=== PATIENT | female | born 1945 | race Caucasian/White ===

== ENCOUNTER 2024-09-14 14:58 | Outpatient (AMB) | payer MEDICAID, SELFPAY ==
--- NOTE | 2024-09-14 15:07 | A.OFFPC_ITS ---
Vital Signs 09/14/24 15:08 Height 4 ft 11.84 in Weight 140 lb 2 oz BMI 27.5 BP 132/80 Blood Pressure Location Lt brachial Position Sitting Pulse 70 Pulse Source Pulse Oximeter Pulse Oximetry (%) 95 Oxygen Delivery Method Room Air Intake Visit Reasons: New Patient Intake Note: The patient is a new patient establishing care for hypertension, prediabetes, and hypothyroidism. She arrived in the [facility] from [facility], six months ago. 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 Patient is not known to [facility]. Patient presents today with her granddaughter who is the brakes inspector for the duration of this visit formal brakes inspector was offered and declined. She recently moved from [place] to the [facility] earlier this year and is here to establish care. She has never had a colonoscopy and is declining a colonoscopy at this time. She has not had a mammogram in over 10 years and is also declining the screening. She has no acute concerns today. [facility] Medical History (Updated 09/14/24 @ 15:45 by Julia Garber PA-C) Impaired glucose tolerance Surgical History (Updated 09/14/24 @ 15:37 by Julia Garber PA-C) H/O: hysterectomy Social History Patient Tobacco Use Status: Never used Tobacco Questionnaire PHQ-9 Over the last 2 weeks, how often have you been bothered by any of the following problems? 1. Little interest or pleasure in doing things: not at all 2. Feeling down, depressed, or hopeless: not at all 3. Trouble falling or staying asleep, or sleeping too much: not at all 4. Feeling tired or having little energy: not at all 5. Poor appetite or overeating: not at all 6. Feeling bad about yourself - or that you are a failure or have let yourself or your family down: not at all 7. Trouble concentrating on things, such as reading the newspaper or watching television: not at all 8. Moving or speaking so slowly that other people could have noticed. Or the opposite - being so fidgety or restless that you have been moving around a lot more than usual: not at all 9. Thoughts that you would be better off or of hurting yourself in some way: not at all Total score: 0 Depression Screening Interpretation: Negative Depression Screening Done: Yes 73368 - PHQ-9 Billing: Yes Source: Developed by Drs. Darinel Jacobs, Stephanie Garrido, Lele Mathis and colleagues, with an educational rayna from [employer]. Thrive Questionnaire Date Thrive assessed: 09/14/24 I am a: Patient What is your living situation today?: I have a steady place to live Within the past 12 months, did the food you bought not last and you didn't have the money to get more?: Never true Within the past 12 months, did you worry whether your food would run out before you got money to buy more?: Never true Do you have trouble paying for medicines?: No Do you have trouble getting transportation to medical appointments?: No Do you have trouble paying your heating and electricity bill?: No Do you have trouble taking care of your child, family member or friend?: No Do you have trouble with day-to-day activities such as bathing, preparing meals, shopping, managing finances, etc.?: No Are you currently unemployed and looking for a job?: No Are you interested in more education?: No Please select the resources that you would like help with: None Currently or been in a relationship where the following occur: No concerns reported THRIVE Score: 0 AUDIT C Alcohol Use Questionnaire (AUDIT-C) 1. How often do you have a drink containing alcohol?: Never 3. How often do you have six or more drinks on one occasion?: Never Total Score: 0 MARIA GUADALUPE-7 AMB Questionnaire MARIA GUADALUPE-7 Date MARIA GUADALUPE - 7 assessed: 09/14/24 Feeling nervous, anxious, or on edge: 0 = Not at all Not being able to stop or control worryin = Not at all Worrying too much about different things: 0 = Not at all Trouble relaxin = Not at all Being so restless that it is hard to sit still: 0 = Not at all Becoming easily annoyed or irritable: 0 = Not at all Feeling afraid as if something awful might happen: 0 = Not at all Total MARIA GUADALUPE-7 score (0-4 normal; 5-9 mild; 10-14 moderate; 15-21 severe): 0 Source: Developed by Drs. Darinel Jacobs, Stephanie Garrido, Lele Mathis and colleagues, with an educational rayna from [employer]. MARIA GUADALUPE-7 Assessment Billing MARIA GUADALUPE-7 Assessment Tool: MARIA GUADALUPE-7 Assessment 39999 Review of Systems Const Denies body aches, Denies fatigue, Denies fever(s), Denies frequent falls, Denies headache(s) and Denies weakness Eyes Reports no additional complaints and Denies change in vision ENT Denies dysphagia, Denies dizziness, Denies facial pain, Denies headache(s), Denies nasal congestion and Denies odynophagia Card Denies chest pain, Denies syncope, Denies irregular heart rhythm, Denies leg edema, Denies lightheadedness and Denies dyspnea Resp Denies cough and Denies dyspnea GI Denies abdominal pain, Denies constipation, Denies dysphagia, Denies dyspepsia, Denies diarrhea, Denies nausea, Denies odynophagia and Denies vomiting Denies urinary frequency and Denies dysuria Musc Denies back pain and Denies myalgias Skin/Breast Reports system reviewed and no additional complaints, except as documented Neuro Denies dizziness, Denies syncope, Denies frequent falls, Denies headache(s) and Denies weakness Psych Reports no additional complaints Endo Denies fatigue Physical exam (Primary Care) Vital Signs: Last Vital Signs Pulse 70 09/14/24 15:08 BP 132/80 09/14/24 15:08 Pulse Ox 95 09/14/24 15:08 Oxygen Delivery Method Room Air 09/14/24 15:08 BMI result Body Mass Index 27.5 Tobacco/Smoking Status: Tobacco use Status Patient Tobacco Use Status Never used Tobacco 09/14/24 15:38 PHQ-9: PHQ-9 Score PHQ-9: Total score 0 09/14/24 15:20 Depression Screening Interpretation: Negative Thrive Assessment: Date of Thrive Assessment Date Thrive assessed 09/14/24 09/14/24 15:20 Currently or been in a relationship where the following occur: No concerns reported Const General: cooperative, healthy appearing, comfortable and no acute distress Orientation/consciousness: patient oriented x3 HENMT Head: Yes normocephalic Ears: hearing grossly normal bilaterally General nose exam: Normal external nose present Eyes General: appearance normal, both eyes and all related structures Conjunctivae: conjunctivae normal Neck Neck: Yes full ROM and Yes no lymphadenopathy Resp Effort & Inspection: normal respiratory effort Auscultation: clear to auscultation bilaterally, no crackles, no rales, no rhonchi and no wheezes Cardio Rate: regular rate Rhythm: regular rhythm Skin General skin exam: no rashes or lesions noted Neuro General: patient oriented x3 Gait exam (Neuro): Normal gait present Extrem General: Yes normal to inspection, Yes full ROM and No edema Psych Affect: normal affect Attitude: cooperative Insight: Good insight present (Psych) Judgement: Good judgement present (Psych) Results AMB Hemoglobin A1c AMB Hemoglobin A1c 7.0 % Last Edit by ROGER Farrell on 09/14/24 16:04 Coding Level of Care Code New Pt Level 4 (62552) Diagnoses Hypothyroidism E03.9 Hypertension I10 Type II diabetes mellitus E11.9 Hypercholesterolemia E78.00 Additional Codes MARIA GUADALUPE-7 Assessment Billing - MARIA GUADALUPE-7 Assessment Tool: MARIA GUADALUPE-7 Assessment 61852 ([id number]) PHQ-9 - 75674 - PHQ-9 Billing: Yes ([id number]) Assessment & Plan Assessment & Plan (1) Hypothyroidism: Code(s): E03.9 - Hypothyroidism, unspecified Category: Medical Plan: Patient currently on levothyroxine 100 mcg daily ordered for updated thyroid blood work. (2) Hypertension: Code(s): I10 - Essential (primary) hypertension Category: Medical Plan: Continue on current blood pressure medication. Avoid salt intake and encourage healthy diet and regular exercise. (3) Type II diabetes mellitus: Code(s): E11.9 - Type 2 diabetes mellitus without complications Category: Medical Plan: Decrease the amount of carbohydrates such as pasta, bread, rice, and potatoes and limit the amount of sweets. Although fruits are generally healthy they should be eaten in moderation as they are still high in sugar. Hemoglobin A1c goal of less than 7%. A1c 7% in the office today. Patient would like to work on dietary and lifestyle modification and we will repeat A1c in 3 months. Carissa ent understands if A1c remains elevated we will need increase in metformin and/or additional medication. (4) Hypercholesterolemia: Code(s): E78.00 - Pure hypercholesterolemia, unspecified Category: Medical Plan: Avoid foods that are high in cholesterol such as red meat, fried foods, eggs and baked goods. Triglyceride goal of less than 150 and LDL goal of less than 100. Continue on atorvastatin 40 mg. Ordered for updated blood work. Plan This note was constructed using voice recognition software. While every effort has been made to ensure accuracy and mathematics professor, still areas may have been included sometimes these areas may affect the content or meeting of the given symptoms. Total time spent caring for the patient today was 30 minutes. This includes time spent before the visit reviewing the chart, time spent during the visit, and time spent after the visit and documentation. Orders: Orders Comprehensive Met. Panel Today R73.02 - Impaired glucose tolerance (oral), Z00.00 - Encounter for general adult medical examination without abnormal findings Lipid Panel Today E78.00 - Pure hypercholesterolemia, unspecified, R73.02 - Impaired glucose tolerance (oral) Vitamin D 25-OH Total Today R73.02 - Impaired glucose tolerance (oral), Z00.00 - Encounter for general adult medical examination without abnormal findings XR DEXA axial skeleton Today Z78.0 - Asymptomatic menopausal state AMB Hemoglobin A1c Today Z13.1 - Encounter for screening for diabetes mellitus Complete Blood Count Auto Diff Today R73.02 - Impaired glucose tolerance (o ral), Z00.00 - Encounter for general adult medical examination without abnormal findings TSH reflex Free T4 Today E03.9 - Hypothyroidism, unspecified, Z00.00 - Encounter for general adult medical examination without abnormal findings Vitamin B12 and Folate Today R73.02 - Impaired glucose tolerance (oral), Z00.00 - Encounter for general adult medical examination without abnormal findings Free T4 (Free Thyroxine) Today E03.9 - Hypothyroidism, unspecified, Z00.00 - Encounter for general adult medical examination without abnormal findings Medications: New hydrochlorothiazide 25 mg PO DAILY 90 tabs 3RF conjugated estrogens off 5 days; repeat cycle 0.625 mg vaginal DAILY 30 grams 0RF levothyroxine 100 mcg PO DAILY 90 tabs 2RF losartan 50 mg PO BID 180 tabs 3RF metformin 850 mg PO BID 180 tabs 2RF metoprolol succinate ER 50 mg PO DAILY 90 tabs 3RF atorvastatin 40 mg PO DAILY 90 tabs 3RF
[2024-09-14 15:08] VITALS: BP 132/80; PULSE 70; O2SAT 95; BMI 27.5
== END 2024-09-14 15:50 | disposition home or self-care (01) ==
DX: E03.9 Hypothyroidism, unspecified (principal); I10 Essential (primary) hypertension; E11.9 Type 2 diabetes mellitus without complications; E78.00 Pure hypercholesterolemia, unspecified; Z13.1 Encounter for screening for diabetes mellitus

== ENCOUNTER → 2024-10-21 13:10 | Outpatient (REF) | payer MEDICAID, SELFPAY ==
--- NOTE | ~2024-10-21 | MM_ITS ---
EXAMINATION: DXA BONE DENSITY AXIAL HISTORY: Estrogen deficiency TECHNIQUE: Virtual View App Dual energy absorptiometry (DEXA) of the lumbar spine, total left hip, and femoral neck was performed. COMPARISON: There are no prior studies for comparison. FINDINGS: The bone mineral density of the lumbar spine is 0.868 with a T-score of -2.5, and a Z-score of -0.6. The bone mineral density of the left total hip is 0.971 with a T-score of -0.3, and a Z-score of 1.6. The bone mineral density of the left femoral neck is 0.952 with a T-score of -0.6, and a Z-score of 1.4. MM/XR DEXA axial skeleton IMPRESSION: Based on bone mineral density, and according to World Health Organization (WHO) criteria, the diagnosis is consistent with osteoporosis. All bone density values are in grams per centimeter squared (g/cm2). Statistically, 68% of repeat scans fall within 1 SD (+/- 0.010 g/cm2 for AP spine L1-L4) and 1 SD (+/- 0.012 g/cm2 for femur total) FRAX is a trademark of the [employer]'s [employer] Metabolic Bone Disease, a World Health Organization (WHO) Collaborating Center. Electronically signed by: Darinel Thurman MD 10/22/2024 08:47 AM [facility]
--- OUTSIDE RECORDS SUMMARY | 2024-10-21 14:33 | XMS_ITS | Clinical Summary ---
Author Organization [facility] Address [address] [place] [address] Care Team Providers Care Export Coordinator Name Role Phone Unavailable Primary Care Provider Unavailabl e Social History Tobacco Use Types Packs/Day Years Used Date Smoking Tobacco: Never Assessed Sex and Gender Information Value Date Recorded Sex Assigned at Not on file Gender Identity Not on file Sexual Orientation Not on file Plan of Treatment Health Maintenance Due Date Last Done Comments DTaP,Tdap,and Td Vaccines (1 - Tdap) 1966 Zoster Vaccines (1 of 2) 1997 Pneumococcal Vaccine: 65+ Ye ars (1 of 1 - PCV) 2012 RSV Immunization Patients 60 + Years Old (1 - 1-dose 75+ series) 2022 COVID-19 Vaccine ( - 2023-2 5 season) 2024 Influenza Vaccine (#1) 2024 HIB Vaccines Aged Out No longer eligi ble based on patient's age to complete this topic HPV Vaccines Aged Out No longer eligi ble based on patient's age to complete this topic Hepatitis A Vaccines Aged Out No long er eligible based on patient's age to complete this topic Hepatitis B Vaccines Aged Out No long er eligible based on patient's age to complete this topic IPV Vaccines Aged Out No longer eligi ble based on patient's age to complete this topic MMR Vaccines Aged Out No longer eligi ble based on patient's age to complete this topic Meningococcal ACWY Vaccine Aged Out N o longer eligible based on patient's age to complete this topic RSV Immunization Patients Un gold 20 months Aged Out No longer eligible b ased on patient's age to complete this topic Varicella Vaccines Aged Out No longer eligible based on patient's age to complete this topic
== END | disposition home or self-care (01) ==
LOC: HO.MAMMO 13:10
DX: Z13.820 Encounter for screening for osteoporosis (principal); Z78.0 Asymptomatic menopausal state
CPT/HCPCS: 77080

== ENCOUNTER → 2024-10-21 13:30 | Outpatient (BNV) | payer MEDICAID, SELFPAY | PROVIDERS: Visit Provider Radiology Diagnostic Radiology | DX: E28.39 Other primary ovarian failure (principal) | CPT/HCPCS: 77080 ==

== ENCOUNTER 2024-11-11 08:00 | Outpatient (AMB) | payer MEDICAID, SELFPAY ==
--- NOTE | 2024-11-11 08:05 | MHC.OFFVIS ---
Vital Signs 11/11/24 08:06 Height 4 ft 11.84 in Weight 143 lb 8.335 oz BMI 28.2 BP 180/88 H Blood Pressure Location Lt brachial Position Sitting Pulse 69 Pulse Source Pulse Oximeter Pulse Oximetry (%) 94 Oxygen Delivery Method Room Air Intake Visit Reasons: Age-related osteoporosis without current path Intake Note: Patient present today for age-related osteoporosis. Director Quality Systems Required: Yes Director Quality Systems Language: Hand Straightener Services: Director Quality Systems Offered & Declined Accompanied by: Grand Child Allergies Sulfa (Sulfonamide Antibiotics) Allergy (Severe, Verified 11/11/24 08:10) swollen tongue Medication List - Last Reconciled 11/11/24 by Darinel Garcia MD atorvastatin 40 mg PO DAILY conjugated estrogens 0.625 mg vaginal DAILY hydrochlorothiazide 25 mg PO DAILY levothyroxine 100 mcg PO DAILY losartan 50 mg PO BID metformin 850 mg PO BID metoprolol succinate ER 50 mg PO DAILY HPI Comments Details: 79 YO Female is seen in consultation at the request of PCP for Osteoporosis. First diagnosed in 1mo .Not seen specialist before Not Received treatment in the past No history of pathologic fracture or ONJ. Has several servings of dietary calcium per day in the form of milk, oranges, cheese . Takes Calcium supplement 300 mg daily in divided doses. Takes 1000 IU of Vitamin D daily. Denies ever using PPI, anticoagulant, antiepileptic or glucocorticoid medication. Not Does weight bearing exercise Fracture history: None Height loss: No ANESTHESIA DIRECTOR history: Menarche at age 14 - menopause at age 60 - nl menses Denies history of Kidney stones: Denies family history of Osteoporosis or hip fracture. UTD on dental cleanings and sees dentist every 6 months. No planned upcoming dental work or extractions. No tabacco oor ETOH use DXA dated 10/21/24: FINDINGS: The bone mineral density of the lumbar spine is 0.868 with a T-score of -2.5, and a Z-score of -0.6. The bone mineral density of the left total hip is 0.971 with a T-score of -0.3, and a Z-score of 1.6. The bone mineral density of the left femoral neck is 0.952 with a T-score of -0.6, and a Z-score of 1.4. MM/XR DEXA axial skeleton IMPRESSION: Based on bone mineral density, and according to World Health Organization (WHO) criteria, the diagnosis is consistent with osteoporosis. Labs: [facility] Medical History (Updated 10/22/24 @ 08:57 by Julia Garber PA-C) Impaired glucose tolerance Surgical History H/O: hysterectomy Social History Patient Tobacco Use Status: Never used Tobacco Physical Exam Vital Signs: Last Vital Signs Pulse 69 11/11/24 08:06 BP 180/88 H 11/11/24 08:06 Pulse Ox 94 11/11/24 08:06 Oxygen Delivery Method Room Air 11/11/24 08:06 BMI result Body Mass Index 28.2 There are no Cushingoid features. Absence of blue sclera. Absence of kyphosis. Thyroid gland is of nl size and weighs 15 gms. There are no thyroid nodules palpated. Lungs CTA. Heart S1 S2 Reg R/R Abdominal exam benign. Muscle strength 5/5 . Examination of spine reveals absence of tenderness on palpation Assessment & Plan Assessment & Plan (1) Osteoporosis: Comment: bone density 09/2024 Code(s): M81.0 - Age-related osteoporosis without current pathological fracture Category: Medical Plan: this is a 79-year-old female with a history of osteoporosis. Rule out secondary causes. Plan is to check a calcium, albumin, TSH, free T4, 25 hydroxy vitamin-D, SPEP, urine immunofixation, 24 hour urine for calcium and creatinine. We will ensure 1200 mg of calcium 2000 IU of vitamin D. assuming secondary workup was negative, could consider either observation or treatment with an anti resorptive Orders: Orders Calcium Today M81.0 - Age-related osteoporosis without current pathological fracture Albumin Level Today M81.0 - Age-related osteoporosis without current pathological fracture Thyroid Stimulating Hormone Today M81.0 - Age-related osteoporosis without current pathological fracture Vitamin D 25-OH Total Today M81.0 - Age-related osteoporosis without current pathological fracture Protein Electrophoresis, Serum Today M81.0 - Age-related osteoporosis without current pathological fracture Creatinine, 24 Hr Group Today M81.0 - Age-related osteoporosis without current pathological fracture Immunofixation, Random Urine Today M81.0 - Age-related osteoporosis without current pathological fracture Phosphorus Today M81.0 - Age-related osteoporosis without current pathological fracture Free T4 (Free Thyroxine) Today M81.0 - Age-related osteoporosis without current pathological fracture Calcium, 24 Hr Ur Today M81.0 - Age-related osteoporosis without current pathological fracture Coding Level of Care Code New Pt Level 4 (11747) Diagnoses Osteoporosis M81.0
[2024-11-11 08:06] VITALS: BP 180/88; PULSE 69; O2SAT 94; BMI 28.2
--- OUTSIDE RECORDS SUMMARY | 2024-11-11 08:09 | XMS_ITS | Clinical Summary ---
Author Organization [facility] ity Address [address] [place] [address] Care Team Providers Care Fence Builder Name Role Phone Unavailable Primary Care Provider Unavailabl e Social History Tobacco Use Types Packs/Day Years Used Date Smoking Tobacco: Never Assessed Comments Unknown Sex and Gender Information Value Date Recorded Sex Assigned at Not on file Legal Sex Female 9:32 AM EST Gender Identity Not on file Sexual Orientation Not on file Plan of Treatment Health Maintenance Due Date Last Done Comments DTaP,Tdap,and Td Vaccines (1 - Tdap) 1966 Pneumococcal Vaccine: 50+ Ye ars (1 of 1 - PCV) 1997 Zoster Vaccines (1 of 2) 1997 RSV Immunization Patients 60 + Years Old (1 - 1-dose 75+ series) 2022 COVID-19 Vaccine (1 - 2023-2 5 season) 2024 Influenza Vaccine [...] patient's age to complete this topic Meningococcal B Vacine Aged Out No lo nger eligible based on patient's age to complete this topic RSV Immunization Patients Un gold 20 months Aged Out No longer eligible b ased on patient's age to complete this topic Varicella Vaccines Aged Out No longer eligible based on patient's age to complete this topic
== END 2024-11-11 08:38 | disposition home or self-care (01) ==
PROVIDERS: Visit Provider Internal Medicine Endocrinology, Diabetes & Metabolism
DX: M81.0 Age-related osteoporosis without current pathological fracture (principal)
CPT/HCPCS: 99204

== ENCOUNTER → 2024-11-11 08:00 | Outpatient (BNVA) | payer MEDICAID, SELFPAY | PROVIDERS: Visit Provider Internal Medicine Endocrinology, Diabetes & Metabolism | DX: M81.0 Age-related osteoporosis without current pathological fracture (principal) | CPT/HCPCS: 99202 ==

== ENCOUNTER 2024-12-01 07:37 | Outpatient (REF) | payer MEDICAID, SELFPAY ==
[2024-12-01 08:14] LABS: MANUAL DIFF FLAG NO
[2024-12-01 08:51] LABS: Basophils Absolute Auto 0.1 X10*3/uL (0.0-0.2); Basophils Percent Auto 0.7 % (0-2); Eosinophils Percent Auto 10.8 % (0-4); Hematocrit 39.7 % (37.0-47.0); Hemoglobin 13.2 g/dl (12.0-16.0); Imm Gran Abs Auto 0.03 X10*3/uL (0.00-0.03); Imm Gran Pct Auto 0.3 % (0.0-0.4); Lymphocytes Absolute Auto 2.2 X10*3/uL (1.2-4.9); Lymphocytes Percent Auto 22.5 % (20-40); Mean Corpuscular HGB Conc 33.2 g/dl (31.0-35.0); Mean Corpuscular Hemoglobin 30.1 pg (27.0-33.0); Mean Corpuscular Volume 90.4 fL (80.0-98.0); Mean Platelet Volume 9.7 fL (9.4-12.3); Monocytes Absolute Auto 0.7 X10*3/uL (0.1-1.2); Monocytes Percent Auto 7.8 % (2-11); Neutrophils Absolute Auto 5.5 x10*3/uL (2.0-8.3); Neutrophils Percent Auto 57.9 % (45-73); Platelet Count 332 X10*3/uL (160-400); Red Blood Count 4.39 X10*6/uL (4.20-5.50); Red Cell Distribution Width 12.7 % (11.0-16.0); White Blood Count 9.5 X10*3/uL (4.8-10.8)
[2024-12-01 09:19] LABS: Alanine Aminotransferase 31 U/L (0-31); Albumin Level 4.2 g/dL (3.5-5.0); Alkaline Phosphatase 102 U/L (39-117); Anion Gap 15 (12-20); Aspartate Amino Transferase 35 U/L (5-31); Bilirubin Total 0.5 mg/dL (0.0-1.0); Blood Urea Nitrogen 28 mg/dL (9-16); Calcium 9.9 mg/dL (8.4-10.2); Carbon Dioxide 25 mmol/L (22-29); Chloride 102 mmol/L (96-108); Cholesterol 136 mg/dL (<200); Estimated Glomerular Filt Rate > 60; Glucose Random 133 mg/dL (60-115); HDL Cholesterol 49 mg/dL (>40); LDL Cholesterol Calculated 60 mg/dL (<100); Phosphorus 4.3 mg/dL (2.7-4.5); Potassium 3.6 mmol/L (3.3-5.1); Sodium 138 mmol/L (135-145); Total Protein 8.4 g/dL (6.5-8.0); Triglycerides 135 mg/dL (<150)
[2024-12-01 09:38] LABS: Free T4 (Free Thyroxine) 1.25 ng/dL (0.71-1.85); Thyroid Stimulating Hormone 0.24 uIU/mL (0.32-4.0); Vitamin D 25-OH Total 41.5 ng/mL (>30)
[2024-12-01 09:54] LABS: Folate 16.5 ng/mL (> or = 4.0); Vitamin B12 493 pg/mL (200-900)
[2024-12-02 22:48] LABS: Prot Elec - Albumin 4.4 g/dL (3.8-4.8); Prot Elec - Alpha1 0.2 g/dL (0.2-0.3); Prot Elec - Alpha2 0.7 g/dL (0.5-0.9); Prot Elec - Beta 1 0.5 g/dL (0.4-0.6); Prot Elec - Beta 2 0.5 g/dL (0.2-0.5); Prot Elec - Gamma 1.6 g/dL (0.8-1.7); Prot Elec - Total Protein 7.9 g/dL (6.1-8.1)
== END 2024-12-01 07:38 | disposition home or self-care (01) ==
LOC: HO.LAB 07:37
PROVIDERS: Absent Provider Internal Medicine Endocrinology, Diabetes & Metabolism
DX: Z00.00 Encounter for general adult medical examination without abnormal findings (principal); M81.0 Age-related osteoporosis without current pathological fracture; E78.00 Pure hypercholesterolemia, unspecified; R73.02 Impaired glucose tolerance (oral)
CPT/HCPCS: 36415; 80053; 80061; 82306; 82607; 82746; 84100; 84165; 84439; 84443; 85025; 86335

== ENCOUNTER 2024-12-07 08:27 | Outpatient (AMB) | payer MEDICAID, SELFPAY ==
--- NOTE | 2024-12-07 08:32 | MHC.PC.OV ---
Vital Signs 12/07/24 08:34 Height 4 ft 11.84 in Weight 141 lb 6 oz BMI 27.8 BP 130/66 Blood Pressure Location Lt brachial Position Sitting Pulse 75 Pulse Source Pulse Oximeter Temp 97.1 F Temp Source Temporal Artery Scan Pulse Oximetry (%) 97 Oxygen Delivery Method Room Air Intake Visit Reasons: ANNUAL Intake Note: Patient is here today for a physical. 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 prefer granddaughter to translate) Manager Portable: Present Accompanied by: Grand Child Allergies Sulfa (Sulfonamide Antibiotics) Allergy (Severe, Verified 12/07/24 08:33) swollen tongue Medication List - Last Reconciled 12/07/24 by Julia Garber PA-C atorvastatin 40 mg PO DAILY conjugated estrogens 0.625 mg vaginal DAILY hydrochlorothiazide 25 mg PO DAILY levothyroxine 100 mcg PO DAILY losartan 50 mg PO BID metformin 850 mg PO BID metoprolol succinate ER 50 mg PO DAILY Tobacco use date assessed: 12/07/24 Fall risk assessment: No Falls in past year Last assessed Fall Risk: 12/07/24 Dental Screening Dental Screen Date: 12/07/24 Did you have a dental visit in the last 12 months?: No Did you have a dental problem in the last 6 months where you did not have access to dental care?: No Was dental information given to patient?: No HPI ANNUAL HPI Details 79-year-old female with past medical history hypertension, hypothyroidism, hypercholesterolemia, type 2 diabetes and osteoporosis last seen 08/2024 coming in for annual exam. In review of the notes, patient was seen by endocrinology 11/11/2024 for osteoporosis ordered for labs plan to follow up to review and discuss treatment. Past evaluations confirmed Type 2 Diabetes Mellitus, with today's HbA1c at 7.0%, requiring an adjustment in diabetic management. She denies significant systemic symptoms like headaches, visual, auditory changes, chest pain, and shortness of breath. She reports seasonal itching of the eyes and dry hands in the winter, likely associated with environmental allergies and weather conditions. She does mentioned having bilateral eye itching. [facility] Medical History Impaired glucose tolerance Surgical History H/O: hysterectomy Social History Housing: House Alcohol intake: never Patient Tobacco Use Status: Never used Tobacco e-Cigarette/Vaping Use: Never Used Second Hand Smoke Exposure: No service: No Current occupational status: retired Cognitive needs: No Hearing needs: No Vision needs: No Questionnaire PHQ-9 Over the last 2 weeks, how often have you been bothered by any of the following problems? 1. Little interest or pleasure in doing things: not at all 2. Feeling down, depressed, or hopeless: not at all 3. Trouble falling or staying asleep, or sleeping too much: not at all 4. Feeling tired or having little energy: not at all 5. Poor appetite or overeating: not at all 6. Feeling bad about yourself - or that you are a failure or have let yourself or your family down: not at all 7. Trouble concentrating on things, such as reading the newspaper or watching television: not at all 8. Moving or speaking so slowly that other people could have noticed. Or the opposite - being so fidgety or restless that you have been moving around a lot more than usual: not at all 9. Thoughts that you would be better off or of hurting yourself in some way: not at all Total score: 0 Depression Screening Interpretation: Negative Depression Screening Done: Yes Source: Developed by Drs. Darinel Jacobs, Stephanie Garrido, Lele Mathis and colleagues, with an educational rayna from [employer]. Thrive Questionnaire Date Thrive assessed: 12/07/24 I am a: Patient What is your living situation today?: I have a steady place to live Within the past 12 months, did the food you bought not last and you didn't have the money to get more?: Never true Within the past 12 months, did you worry whether your food would run out before you got money to buy more?: Never true Do you have trouble paying for medicines?: No Do you have trouble getting transportation to medical appointments?: No Do you have trouble paying your heating and electricity bill?: No Do you have trouble taking care of your child, family member or friend?: No Do you have trouble with day-to-day activities such as bathing, preparing meals, shopping, managing finances, etc.?: No Are you currently unemployed and looking for a job?: No Are you interested in more education?: No Please select the resources that you would like help with: None Currently or been in a relationship where the following occur: No concerns reported THRIVE Score: 0 AUDIT C Alcohol Use Questionnaire (AUDIT-C) 1. How often do you have a drink containing alcohol?: Never 3. How often do you have six or more drinks on one occasion?: Never Total Score: 0 MARIA GUADALUPE-7 AMB Questionnaire MARIA GUADALUPE-7 Date MARIA GUADALUPE - 7 assessed: 12/07/24 Feeling nervous, anxious, or on edge: 0 = Not at all Not being able to stop or control worryin = Not at all Worrying too much about different things: 0 = Not at all Trouble relaxin = Not at all Being so restless that it is hard to sit still: 0 = Not at all Becoming easily annoyed or irritable: 0 = Not at all Feeling afraid as if something awful might happen: 0 = Not at all Total MARIA GUADALUPE-7 score (0-4 normal; 5-9 mild; 10-14 moderate; 15-21 severe): 0 Source: Developed by Drs. Darinel Jacobs, Stephanie Garrido, Lele Mathis and colleagues, with an educational rayna from [employer]. Review of Systems Const Denies body aches, Denies chills, Denies fever(s), Denies headache(s) and Denies poor appetite Eyes Reports no additional complaints ENT Denies dysphagia, Denies dizziness, Denies headache(s) and Denies odynophagia Card Denies chest pain, Denies syncope, Denies edema, Denies irregular heart rhythm, Denies lightheadedness and Denies dyspnea Resp Denies cough and Denies dyspnea GI Denies abdominal pain, Denies constipation, Denies dysphagia, Denies diarrhea, Denies nausea, Denies odynophagia and Denies vomiting Reports no additional complaints Musc Reports no additional complaints and Denies abnormal gait Skin/Breast Reports system reviewed and no additional complaints, except as documented Neuro Denies abnormal gait, Denies dizziness, Denies syncope and Denies headache(s) Psych Reports no additional complaints Physical exam (Primary Care) Vital Signs: Last Vital Signs Temp 97.1 F 12/07/24 08:34 Pulse 75 12/07/24 08:34 BP 130/66 12/07/24 08:34 Pulse Ox 97 12/07/24 08:34 Oxygen Delivery Method Room Air 12/07/24 08:34 BMI result Body Mass Index 27.8 Tobacco/Smoking Status: Tobacco use Status Tobacco use date assessed 12/07/24 12/07/24 08:39 Patient Tobacco Use Status Never used Tobacco 12/07/24 08:39 e-Cigarette/Vaping Use Never Used 12/07/24 08:39 PHQ-9: PHQ-9 Score PHQ-9: Total score 0 12/07/24 10:38 Depression Screening Interpretation: Negative Thrive Assessment: Date of Thrive Assessment Date Thrive assessed 12/07/24 12/07/24 08:39 Currently or been in a relationship where the following occur: No concerns reported Const General: cooperative, healthy appearing, comfortable and no acute distress Orientation/consciousness: patient oriented x3 HENMT Head: Yes normocephalic Ears: hearing grossly normal bilaterally, external ears normal, TM's normal bilaterally and EAC's normal General nose exam: Normal external nose present Face and sinus: Yes normal facial exam and Yes sinuses nontender Mouth: Normal oral and palatal mucosa present and tongue normal Throat: Yes posterior oropharynx normal Eyes General: appearance normal, both eyes and all related structures Conjunctivae: conjunctivae normal Pupils: Equal, round and reactive pupils present EOM: EOMs intact bilaterally and No Nystagmus present Neck Neck: Yes normal visual inspection, Yes full ROM and Yes no lymphadenopathy Chest Chest palpation & inspection: normal inspection of the chest Resp Effort & Inspection: normal respiratory effort Auscultation: clear to auscultation bilaterally, no crackles, no rales, no rhonchi, no wheezes and breath sounds present Cardio Rate: regular rate Rhythm: regular rhythm Peripheral pulses: radial pulses present and dorsalis pedis present GI Inspection: Yes normal to inspection and No Abdominal wall edema Palpation (GI): Soft to palpation, not firm and nontender Auscultation: normal bowel sounds Rectal Exam - Female: deferred General: Yes no CVA tenderness Back/Spine/Pelvis Back: no CVA tenderness Skin General skin exam: no rashes or lesions noted Neuro General: patient oriented x3 Cranial nerves: Yes Equal, round and reactive pupils present, Yes Midline tongue present, Yes Ability to bilaterally elevate shoulders present and No Nystagmus present Gait exam (Neuro): Normal gait present Extrem General: Yes normal to inspection, Yes full ROM, No no pedal edema and No edema Psych Speech and movement: Normal speech and movement present Affect: normal affect Insight: Good insight present (Psych) Judgement: Good judgement present (Psych) Results AMB Hemoglobin A1c AMB Hemoglobin A1c 7.0 % Last Edit by MARIANA Severino on 12/07/24 09:11 Results Reviewed Results Reviewed: Laboratory Last Values Hgb A1c (Clinic) 7.0 % (4.0-6.0) H 12/07/24 08:56 Coding Level of Care Code Est Pt Prev Care >65y(08652) Diagnoses Osteoporosis M81.0 Type II diabetes mellitus E11.9 Hypercholesterolemia E78.00 Hypothyroidism E03.9 Hypertension I10 Annual physical exam Z00.00 Overweight (BMI 25.0-29.9) E66.3 Itchy eyes H57.9 Assessment & Plan Assessment & Plan (1) Osteoporosis: Comment: bone density 09/2024 Code(s): M81.0 - Age-related osteoporosis without current pathological fracture Category: Medical Plan: Currently following with Dr. Garcia and having secondary workup complete for osteoporosis plan to discuss treatment options at next visit. Continue to follow with endocrinology (2) Type II diabetes mellitus: Code(s): E11.9 - Type 2 diabetes mellitus without complications Category: Medical Plan: Decrease the amount of carbohydrates such as pasta, bread, rice, and potatoes and limit the amount of sweets. Although fruits are generally healthy they should be eaten in moderation as they are still high in sugar. Hemoglobin A1c goal of less than 7%. A1c 7.0% on exam today plan to add Jardiance to medication regimen continue with metformin at this time. Repeat in 3 months (3) Hypercholesterolemia: Code(s): E78.00 - Pure hypercholesterolemia, unspecified Category: Medical Plan: Avoid foods that are high in cholesterol such as red meat, fried foods, eggs and baked goods. Triglyceride goal of less than 150 and LDL goal of less than 100. Continue on atorvastatin 40 (4) Hypothyroidism: Code(s): E03.9 - Hypothyroidism, unspecified Category: Medical Plan: Continue on levothyroxine at this time plan to repeat thyroid levels at next visit. (5) Hypertension: Code(s): I10 - Essential (primary) hypertension Category: Medical Plan: Continue on current blood pressure medication. Avoid salt intake and encourage healthy diet and regular exercise. (6) Annual physical exam: Code(s): Z00.00 - Encounter for general adult medical examination without abnormal findings Category: Medical Plan: Patient believes she is up-to-date on all vaccinations she will bring her records to her next visit to verify. She is declining mammogram and colonoscopy screening at this time and is outside of the recommended age for screening. Regular follow-ups every three months are planned to monitor laboratory outcomes, adjust treatments, and assess the additional need for interventions. (7) Overweight (BMI 25.0-29.9): Code(s): E66.3 - Overweight Category: Medical Plan: Healthy diet and regular exercise is encouraged. (8) Itchy eyes: Code(s): H57.9 - Unspecified disorder of eye and adnexa Category: Medical Plan: For the patient?s eye itching due to allergies, I prescribed ophthalmic drops. May use OTC antihistamines as well. Plan This note was constructed using voice recognition software. While every effort has been made to ensure accuracy and licensed mental health counselor, still areas may have been included sometimes these areas may affect the content or meeting of the given symptoms. Total time spent caring for the patient today was 30 minutes. This includes time spent before the visit reviewing the chart, time spent during the visit, and time spent after the visit and documentation. Patient was informed and verbally consented to the use of an ambient scribe for clinic note documentation during this visit. Orders: Orders AMB Hemoglobin A1c Today E11.9 - Type 2 diabetes mellitus without complications Medications: New empagliflozin (Jardiance) 10 mg PO DAILY 90 tabs 0RF ketotifen fumarate 0.025%(0.035%) (Zaditor) administer at least 8 hours apart 1 drp ophthalmic (eye) BID 5 mL 0RF
[2024-12-07 08:34] VITALS: BP 130/66; PULSE 75; TEMP 36.2; O2SAT 97; BMI 27.8
== END 2024-12-07 09:14 | disposition home or self-care (01) ==
LOC: HO.HMCH 08:28
DX: M81.0 Age-related osteoporosis without current pathological fracture (principal); E11.9 Type 2 diabetes mellitus without complications; E78.00 Pure hypercholesterolemia, unspecified; E03.9 Hypothyroidism, unspecified; I10 Essential (primary) hypertension; Z00.00 Encounter for general adult medical examination without abnormal findings; E66.3 Overweight; H57.9 Unspecified disorder of eye and adnexa

== ENCOUNTER → 2024-12-07 08:27 | Outpatient (BNVA) | payer MEDICAID, SELFPAY | DX: Z00.00 Encounter for general adult medical examination without abnormal findings (principal); M81.0 Age-related osteoporosis without current pathological fracture; E11.9 Type 2 diabetes mellitus without complications; E78.00 Pure hypercholesterolemia, unspecified; E03.9 Hypothyroidism, unspecified; I10 Essential (primary) hypertension; E66.3 Overweight; Z68.27 Body mass index [BMI] 27.0-27.9, adult; H57.9 Unspecified disorder of eye and adnexa; Z71.3 Dietary counseling and surveillance | CPT/HCPCS: 83036; 99397 ==

== ENCOUNTER 2024-12-07 12:17 | Outpatient (REF) | payer MEDICAID, SELFPAY ==
[2024-12-07 13:21] LABS: Total Volume 24 Hour Urine 1025 mL
[2024-12-07 13:25] LABS: Creatinine, 24Hr Urine 0.4 G/Day (1.0-2.0); Creatinine, mg/dL 42.37
[2024-12-09 17:59] LABS: Calcium, 24 Hr Urine 22 mg/24 h; Calcium/Creatinine Ratio 50 mg/g creat (30-275); Creatinine 24Hr Urine 0.43 g/24 h (0.50-2.15)
== END 2024-12-07 12:18 | disposition home or self-care (01) ==
LOC: HO.LNP 12:17
PROVIDERS: Visit Provider Internal Medicine Endocrinology, Diabetes & Metabolism
DX: M81.0 Age-related osteoporosis without current pathological fracture (principal)
CPT/HCPCS: 82340; 82570

== ENCOUNTER 2024-12-30 07:52 | Outpatient (REF) | payer MEDICAID, SELFPAY ==
--- OUTSIDE RECORDS SUMMARY | 2024-12-30 07:56 | XMS_ITS | Clinical Summary ---
Author Organization [facility] ity Address [address] [place] [address] Care Team Providers Care Drawbench Operator Helper Name Role Phone Unavailable Primary Care Provider [...] Vaccines (1 of 2) 1997 RSV Immunization Adult Patie nts (1 - 1-dose 75+ series) 2022 COVID-19 Vaccine ( - 2023-2 5 season) 2024 Influenza Vaccine (Season Ended) 2025 HIB Vaccines Aged Out No longer eligi [...] age to complete this topic Meningococcal B Vaccine Aged Out No l onger eligible based on patient's age to complete this topic RSV Immunization Patients Un gold 20 months Aged Out No longer eligible b ased on patient's age to complete this topic Varicella Vaccines Aged Out No longer eligible based on patient's age to complete this topic
[2024-12-30 09:08] LABS: Appearance Urine Clear; Color Urine Yellow; Glucose Urine UA 500 mg/dL (Negative); Leukocyte Esterase Urine Trace (Negative); Nitrite Urine Negative (Negative); Specific Gravity - Urine 1.015 (1.005-1.025); UMIC TRIGGER UACC YES; Urine Blood Negative (Negative); Urine Ketones Negative (Negative); Urine Protein Negative (Neg-Trace)
[2024-12-30 09:11] LABS: Bacteria Urine 4+ (None Seen); Hyaline Casts Urine 0-2 /LPF (0-2); RBC Urine 0-2 /HPF (0-2); UACC Culture Trigger YES
== END 2024-12-30 07:53 | disposition home or self-care (01) ==
LOC: HO.LAB 07:52
DX: R39.9 Unspecified symptoms and signs involving the genitourinary system (principal)
CPT/HCPCS: 81001; 81003; 87086

== ENCOUNTER 2025-03-23 07:59 | Outpatient (AMB) | payer MEDICAID, SELFPAY ==
--- OUTSIDE RECORDS SUMMARY | 2025-03-23 08:01 | XMS_ITS | Clinical Summary ---
Author Organization [facility] ity Address [address] [place] [address] Care Team Providers Care Escalator Constructor Name Role Phone Unavailable Primary Care Provider [...] 2023-2 5 season) 2024 Influenza Vaccine (#1) 2025 HIB Vaccines Aged Out No longer [...]
--- NOTE | 2025-03-23 08:04 | A.OFFVIS_ITS ---
Vital Signs 03/23/25 08:07 Height 4 ft 11.84 in Weight 140 lb 6.951 oz BMI 27.6 BP 114/72 Blood Pressure Location Rt brachial Position Sitting Pulse 62 Pulse Source Pulse Oximeter Pulse Oximetry (%) 97 Oxygen Delivery Method Room Air Intake Visit Reasons: Osteoporosis Intake Note: Patient present today for Osteoporosis follow up. Departmental Buyer Required: Yes Departmental Buyer Language: Commander Internal Affairs Services: Departmental Buyer Offered & Declined Accompanied by: Grand Child Allergies Sulfa (Sulfonamide Antibiotics) Allergy (Severe, Verified 03/23/25 08:08) swollen tongue Medication List - Last Reconciled 03/23/25 by Darinel Garcia MD atorvastatin 40 mg PO DAILY conjugated estrogens 0.625 mg vaginal DAILY hydrochlorothiazide 25 mg PO DAILY ketotifen fumarate 0.025%(0.035%) (Zaditor) 1 drp ophthalmic (eye) BID levothyroxine 100 mcg PO DAILY losartan 50 mg PO BID metformin 850 mg PO BID metoprolol succinate ER 50 mg PO DAILY nitrofurantoin monohyd/m-cryst 100 mg 100 mg PO Q12H 7 days sitagliptin phosphate (Januvia) 25 mg PO DAILY HPI Comments Details: 79 YO Female is seen in consultation at the request of PCP for Osteoporosis. First diagnosed in 1mo .Not seen specialist before Not Received treatment in the past No history of pathologic fracture or ONJ. Has several servings of dietary calcium per day in the form of milk, oranges, cheese . Takes Calcium supplement 300 mg daily in divided doses. Takes 1000 IU of Vitamin D daily. Denies ever using PPI, anticoagulant, antiepileptic or glucocorticoid medication. Not Does weight bearing exercise Fracture history: None Height loss: No REAL ESTATE INTERN history: Menarche at age 14 - menopause at age 60 - nl menses Denies history of Kidney stones: Denies family history of Osteoporosis or hip fracture. UTD on dental cleanings and sees dentist every 6 months. No planned upcoming dental work or extractions. No tabacco oor ETOH use DXA dated 10/21/24: FINDINGS: The bone mineral density of the lumbar spine is 0.868 with a T-score of -2.5, and a Z-score of -0.6. The bone mineral density of the left total hip is 0.971 with a T-score of -0.3, and a Z-score of 1.6. The bone mineral density of the left femoral neck is 0.952 with a T-score of -0.6, and a Z-score of 1.4. MM/XR DEXA axial skeleton IMPRESSION: Based on bone mineral density, and according to World Health Organization (WHO) criteria, the diagnosis is consistent with osteoporosis. Labs: Secondary workup negative except for low urinary calcium but patient is on HCTZ The patient is a 79-year-old female presenting with osteoporosis management. The osteoporosis diagnosis is borderline, with a T score of negative 2.5, which is the threshold for osteoporosis. She has never experienced a fracture of the hip or spine. The patient is currently not on any osteoporosis medication, and there is a consideration of starting alendronate if the condition worsens. The workup for osteoporosis was negative except for low urine calcium levels, potentially due to hydrochlorothiazide use for hypertension. The patient is advised to increase calcium supplementation to 300 mg twice a day. The patient prefers to engage in weight-bearing exercises, such as light weights, as a non-pharmacological approach to managing osteoporosis. A follow-up bone density test is planned in two years to monitor the condition's progression. - Hydrochlorothiazide: Used for hypertension, may contribute to low urine calcium levels. [facility] Medical History Impaired glucose tolerance Surgical History H/O: hysterectomy Social History Housing: House Alcohol intake: never Patient Tobacco Use Status: Never used Tobacco e-Cigarette/Vaping Use: Never Used Second Hand Smoke Exposure: No service: No Current occupational status: retired Cognitive needs: No Hearing needs: No Vision needs: No Physical Exam Vital Signs: Last Vital Signs Pulse 62 03/23/25 08:07 BP 114/72 03/23/25 08:07 Pulse Ox 97 03/23/25 08:07 Oxygen Delivery Method Room Air 03/23/25 08:07 BMI result Body Mass Index 27.6 Assessment & Plan Assessment & Plan (1) Osteoporosis: Comment: bone density 09/2024 Code(s): M81.0 - Age-related osteoporosis without current pathological fracture Category: Medical Plan: this is a 79-year-old female with a history of osteoporosis. Secondary workup negative Plan is to increase calcium supplementation to 300 mg b.i.d. we will talk to patient about either observing considering borderline osteoporosis with non pharmacologic therapy and weight-bearing exercise or initiation of oral bisphosphonate 1. Osteoporosis The patient's T score is borderline at negative 2.5, indicating a risk for osteoporosis without prior fractures. The plan includes increasing calcium supplementation to 300 mg twice daily and engaging in weight-bearing exercises. A follow-up bone density test can be scheduled in two years by her PCP to monitor progression. Consideration for alendronate therapy will be made if the condition worsens. This can be initiated by the patient's primary care provider. At this point, the patient returned back to the care of her primary care provider I discussed with the patient the borderline nature of her osteoporosis diagnosis, with a T score of negative 2.5. We talked about the potential b enefits and risks of starting alendronate, including the possibility of worsening reflux. The patient prefers to manage her condition with increased calcium intake and weight-bearing exercises. We agreed to monitor her bone density in two years and consider medication if her condition worsens. - Increase calcium supplementation to 300 mg twice daily. - Engage in weight-bearing exercises, such as light weights. - Follow up with a bone density test in two years. The patient had an opportunity to ask questions regarding treatment plan. The patient expressed understanding and agreement with the above treatment plan. Patient was informed and verbally consented to the use of an ambient scribe for clinic note documentation during this visit. Coding Level of Care Code Est Pt Level 3 (28841) Diagnoses Osteoporosis M81.0
[2025-03-23 08:07] VITALS: BP 114/72; PULSE 62; O2SAT 97; BMI 27.6
== END 2025-03-23 08:17 | disposition home or self-care (01) ==
LOC: HO.ENCR 07:59
PROVIDERS: Visit Provider Internal Medicine Endocrinology, Diabetes & Metabolism
DX: M81.0 Age-related osteoporosis without current pathological fracture (principal)
CPT/HCPCS: 99213

== ENCOUNTER → 2025-03-23 07:59 | Outpatient (BNVA) | payer MEDICAID, SELFPAY | PROVIDERS: Visit Provider Internal Medicine Endocrinology, Diabetes & Metabolism | DX: M81.0 Age-related osteoporosis without current pathological fracture (principal) | CPT/HCPCS: 99212 ==

== ENCOUNTER 2025-07-21 08:25 | Outpatient (AMB) | payer MEDICAID, SELFPAY ==
--- NOTE | 2025-07-21 08:30 | A.OFFPC_ITS ---
Vital Signs 07/21/25 08:31 Height 4 ft 11.8 in Weight 140 lb 8 oz BMI 27.6 BP 130/80 Blood Pressure Location Lt brachial Position Sitting Pulse 71 Pulse Source Pulse Oximeter Temp 97.1 F Temp Source Temporal Artery Scan Pulse Oximetry (%) 97 Oxygen Delivery Method Room Air Intake Visit Reasons: f/u dm Intake Note: Patient is here to follow up on DM. Freezing Room Worker Required: Yes Freezing Room Worker Language: Stock Worker And Deliverer Name: Antolin (grand-daughter) Information Interpreted: non-clinical & clinical (Pt decline project specialist service prefer grand daughter to translate) Tile Fitter: Present Accompanied by: Grand Child Allergies Sulfa (Sulfonamide Antibiotics) Allergy (Severe, Verified 07/21/25 08:48) swollen tongue empagliflozin (From Jardiance) Adverse Reaction (Intermediate, Verified 07/21/25 08:48) uti Medication List - Last Reviewed 07/21/25 by MARIANA Severino atorvastatin 40 mg PO DAILY hydrochlorothiazide 25 mg PO DAILY hydrochlorothiazide 25 mg PO DAILY ketotifen fumarate 0.025%(0.035%) (Zaditor) 1 drp ophthalmic (eye) BID levothyroxine 100 mcg PO DAILY losartan 50 mg PO BID metformin 850 mg PO BID metoprolol succinate ER 50 mg PO DAILY metoprolol succinate ER 50 mg PO DAILY sitagliptin phosphate (Januvia) 25 mg PO DAILY Tobacco use date assessed: 07/21/25 Fall risk assessment: No Falls in past year Last assessed Fall Risk: 07/21/25 Dental Screening Dental Screen Date: 12/07/24 HPI f/u dm HPI Details 80-year-old female with past medical his tory of hypertension, hypothyroidism, osteoporosis, hypercholesterolemia and type 2 diabetes last seen 11/2024 coming in for follow up. In review of the notes, patient was seen by endocrinology 03/2025 for osteoporosis calcium supplementation was increased to 300 mg b.i.d. and weight-bearing exercises. Presenting for management of chronic conditions. Regarding her diabetes, she was previously started on a medication that subsequently caused a urinary tract infection about two weeks later, which was confirmed by a urine test. Her medication was changed to Januvia, which she has been tolerating well. An in- office A1c today was 6.7%, an improvement from the previous result of 7%. She intermittently experiences a weird sensation in her stomach, which can cause her to eat less, but denies pain. She does not notice any triggers to this discomfort. [facility] Medical History Impaired glucose tolerance Surgical History H/O: hysterectomy Social History Housing: House Alcohol intake: never Patient Tobacco Use Status: Never used Tobacco e-Cigarette/Vaping Use: Never Used Second Hand Smoke Exposure: No service: No Current occupational status: retired Cognitive needs: No Hearing needs: No Vision needs: No Questionnaire Thrive Questionnaire Date Thrive assessed: 11/30/24 I am a: Patient What is your living situation today?: I have a steady place to live Within the past 12 months, did the food you bought not last and you didn't have the money to get more?: Never true Within the past 12 months, did you worry whether your food would run out before you got money to buy more?: Never true Do you have trouble paying for medicines?: No Do you have trouble getting transportation to medical appointments?: No Do you have trouble paying your heating and electricity bill?: No Do you have trouble taking care of your child, family member or friend?: No Do you have trouble with day-to-day activities such as bathing, preparing meals, shopping, managing finances, etc.?: No Are you currently unemployed and looking for a job?: No Are you interested in more education?: No Please select the resources that you would like help with: None Currently or been in a relationship where the following occur: No concerns reported THRIVE Score: 0 MARIA GUADALUPE-7 AMB Questionnaire MARIA GUADALUPE-7 Date MARIA GUADALUPE - 7 assessed: 12/07/24 Source: Developed by Drs. Darinel Jacobs, Stephanie Garrido, Lele Mathis and colleagues, with an educational rayna from [employer]. Review of Systems Const Denies body aches, Denies chills, Denies fever(s), Denies headache(s) and Denies poor appetite Eyes Reports no additional complaints ENT Denies dizziness and Denies headache(s) Card Denies chest pain, Denies edema, Denies lightheadedness and Denies dyspnea Resp Denies dyspnea GI Denies abdominal pain, Denies constipation, Denies diarrhea, Denies nausea and Denies vomiting Reports no additional complaints Musc Reports no additional complaints and Denies abnormal gait Skin/Breast Reports system reviewed and no additional complaints, except as documented Neuro Denies abnormal gait, Denies dizziness and Denies headache(s) Psych Reports no additional complaints Physical exam (Primary Care) Vital Signs: Last Vital Signs Temp 97.1 F 07/21/25 08:31 Oxygen Delivery Method Room Air 07/21/25 08:31 BMI result Body Mass Index 27.6 Tobacco/Smoking Status: Tobacco use Status Tobacco use date assessed 12/07/24 12/07/24 08:39 Patient Tobacco Use Status Never used Tobacco 12/07/24 08:39 e-Cigarette/Vaping Use Never Used 12/07/24 08:39 Thrive Assessment: Date of Thrive Assessment Date Thrive assessed 11/30/24 07/21/25 08:26 Currently or been in a relationship where the following occur: No concerns reported Const General: cooperative, healthy appearing, comfortable and no acute distress Orientation/consciousness: patient oriented x3 HENMT Head: Yes normocephalic Ears: hearing grossly normal bilaterally General nose exam: Normal external nose present Eyes General: appearance normal, both eyes and all related structures Conjunctivae: conjunctivae normal Neck Neck: Yes full ROM and Yes no lymphadenopathy Resp Effort & Inspection: normal respiratory effort Auscultation: clear to auscultation bilaterally, no crackles, no rales, no rhonchi and no wheezes Cardio Rate: regular rate Rhythm: regular rhythm GI Palpation (GI): Soft to palpation, not firm, nontender, no guarding, not rigid, no masses and No Rebound tenderness present Skin General skin exam: no rashes or lesions noted Neuro General: patient oriented x3 Gait exam (Neuro): Normal gait present Extrem General: Yes normal to inspection, Yes full ROM and No edema Psych Affect: normal affect Attitude: cooperative Insight: Good insight present (Psych) Judgement: Good judgement present (Psych) Results AMB Hemoglobin A1c AMB Hemoglobin A1c 6.7 % Last Edit by MARIANA Severino on 07/21/25 08:46 Coding Level of Care Code Est Pt Level 3 (60525) Diagnoses Hypertension I10 Hypercholesterolemia E78.00 Type II diabetes mellitus E11.9 Hypothyroidism E03.9 Osteoporosis M81.0 Overweight (BMI 25.0-29.9) E66.3 Gait instability R26.81 Stomach discomfort R10.9 Assessment & Plan Assessment & Plan (1) Hypertension: Code(s): I10 - Essential (primary) hypertension Category: Medical Plan: Continue on current blood pressure medication. Avoid salt intake and encourage healthy diet and regular exercise. (2) Hypercholesterolemia: Code(s): E78.00 - Pure hypercholesterolemia, unspecified Category: Medical Plan: Avoid foods that are high in cholesterol such as red meat, fried foods, eggs and baked goods. Triglyceride goal of less than 150 and LDL goal of less than 100. Continue on Atorvastatin 40mg (3) Type II diabetes mellitus: Code(s): E11.9 - Type 2 diabetes mellitus without complications Category: Medical Plan: Decrease the amount of carbohydrates such as pasta, bread, rice, and potatoes and limit the amount of sweets. Although fruits are generally healthy they should be eaten in moderation as they are still high in sugar. Hemoglobin A1c goal of less than 7%. Patient is currently on metformin 850 mg b.i.d. and Januvia. A1c in the office today 6.7% continue on current medication. (4) Hypothyroidism: Code(s): E03.9 - Hypothyroidism, unspecified Category: Medical Plan: Ordered for repeat blood work and continue on levothyroxine 100 mcg at this time. (5) Osteoporosis: Comment: bone density 09/2024 Code(s): M81.0 - Age-related osteoporosis without current pathological fracture Category: Medical Plan: For osteoporosis patient was increased on her calcium to 300 mg b.i.d. per endocrinology if T-score worsens plan to initiate alendronate (6) Overweight (BMI 25.0-29.9): Code(s): E66.3 - Overweight Category: Medical Plan: Healthy diet and regular exercise is encouraged. Weight is stable since last visit. (7) Gait instability: Code(s): R26.81 - Unsteadiness on feet Category: Medical Plan: Patient has chronic gait instability and would benefit from handicap placard to prevent falls given history of osteoporosis. (8) Stomach discomfort: Code(s): R10.9 - Unspecified abdominal pain Category: Medical Plan: The patient reports an intermittent weird sensation in her stomach. Physical exam revealed a non-tender abdomen. Given the description, symptoms are suspicious for acid reflux. Advised to watch for dietary triggers such as tomato products, caffeine, chocolate, and fried foods and to try [id number] Tums for symptomatic relief. Patient will continue to monitor her symptoms at this time and reviewed red flag symptoms and when to present for re-evaluation. Plan This note was constructed using voice recognition software. While every effort has been made to ensure accuracy and director behavioral health, still areas may have been included sometimes these areas may affect the content or meeting of the given symptoms. Total time spent caring for the patient today was 20 minutes. This includes time spent before the visit reviewing the chart, time spent during the visit, and time spent after the visit and documentation. Patient was informed and verbally consented to the use of an ambient scribe for clinic note documentation during this visit. Orders: Orders Lipid Panel Today E78.00 - Pure hypercholesterolemia, unspecified Comprehensive Met. Panel Today E11.9 - Type 2 diabetes mellitus without complications, Z00.00 - Encounter for general adult medical examination without abnormal findings Vitamin D 25-OH Total Today E11.9 - Type 2 diabetes mellitus without complications, Z13.21 - Encounter for screening for nutritional disorder AMB Hemoglobin A1c Today E11.9 - Type 2 diabetes mellitus without complications TSH reflex Free T4 Today E03.9 - Hypothyroidism, unspecified, Z13.29 - Encounter for screening for other suspected endocrine disorder Vitamin B12 and Folate Today E11.9 - Type 2 diabetes mellitus without com plications, Z13.21 - Encounter for screening for nutritional disorder Complete Blood Count Auto Diff Today E11.9 - Type 2 diabetes mellitus without complications, Z13.0 - Encounter for screening for diseases of the blood and blood-forming organs and certain disorders involving the immune mechanism Medications: Refilled metoprolol succinate ER 50 mg PO DAILY 90 tabs 3RF sitagliptin phosphate (Januvia) 25 mg PO DAILY 90 tabs 1RF hydrochlorothiazide 25 mg PO DAILY 90 tabs 3RF metformin 850 mg PO BID 180 tabs 2RF losartan 50 mg PO BID 180 tabs 3RF
[2025-07-21 08:31] VITALS: BP 130/80; PULSE 71; TEMP 36.2; O2SAT 97; BMI 27.6
--- OUTSIDE RECORDS SUMMARY | 2025-07-21 08:39 | XMS_ITS | Clinical Summary ---
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
== END 2025-07-21 09:03 | disposition home or self-care (01) ==
LOC: HO.HMCH 08:26
DX: I10 Essential (primary) hypertension (principal); E78.00 Pure hypercholesterolemia, unspecified; E11.9 Type 2 diabetes mellitus without complications; E03.9 Hypothyroidism, unspecified; M81.0 Age-related osteoporosis without current pathological fracture; E66.3 Overweight; R26.81 Unsteadiness on feet; R10.9 Unspecified abdominal pain

== ENCOUNTER → 2025-07-21 08:25 | Outpatient (BNVA) | payer MEDICAID, SELFPAY | DX: E11.9 Type 2 diabetes mellitus without complications (principal); I10 Essential (primary) hypertension; E03.9 Hypothyroidism, unspecified; E78.00 Pure hypercholesterolemia, unspecified; M81.0 Age-related osteoporosis without current pathological fracture; E66.3 Overweight; R26.81 Unsteadiness on feet; R10.9 Unspecified abdominal pain; Z68.27 Body mass index [BMI] 27.0-27.9, adult | CPT/HCPCS: 83036; 99212 ==